=== PATIENT | male | born 1990 ===

== ENCOUNTER 2017-05-10 23:56 | Emergency (ER) | payer SELFPAY ==
[~2017-05-10] VITALS: Ht 167.6 cm; Wt 74.8 kg
[2017-05-11 00:34] LABS: BILIRUBIN NEGATIVE (NEGATIVE); BLOOD NEGATIVE (NEGATIVE); CLARITY CLEAR (CLEAR); COLOR YELLOW (YELLOW); GLUCOSE NEGATIVE (NEGATIVE); KETONE NEGATIVE (NEGATIVE); LEUKO ESTERASE NEGATIVE (NEGATIVE); NITRITE NEGATIVE (NEGATIVE); PH 6.5 (5.0-9.0); PROTEIN NEGATIVE (NEGATIVE)
[2017-05-11 00:39] LABS: BACTERIA TRACE; EPITHELIAL CELLS 0-2; RBC 0-2 rbc/hpf (0-2); WBC 0-2 wbc/hpf (0-5)
[2017-05-11 00:40] LABS: URINE REFLEX COMMENT NO (NO)
[2017-05-11] MEDS ORDERED: VIBRAMYCIN100 MG PO ×2 (01:11→01:22)
== END 2017-05-11 01:18 | disposition home or self-care (01) ==
LOC: ED 23:56
PROVIDERS: Nurse Practitioner Family
DX: N45.1 Epididymitis (principal)